=== PATIENT | female | born 1955 ===

== ENCOUNTER 2022-02-22 15:35 | Observation (INO) ==
[2022-02-22] MEDS: Heparin 5000 UNITS/ML 1 mL VIAL SUBCUT SCH (21:49)
[2022-02-22 21:52] LABS: ABS Eosinophils 0.1 10^3/ul (0-0.6); ABS Lymphocytes 3.3 10^3/ul (1.0-4.8); ABS Monocytes 0.6 10^3/ul (0-0.8); ABS Neutrophils 4.3 10^3/ul (1.5-7.7); Eosinophil % 1.6 %; Hematocrit 44 % (35-47); Hemoglobin 14.9 g/dL (12.0-16.0); Lymphocyte % 39.3 %; Mean Corpuscular HGB Conc 34 g/dL (31-36); Mean Corpuscular Hemoglobin 32 pg (27-31); Mean Corpuscular Volume 95 fL (80-97); Nucleated Red Blood Cells % 0.1; Platelet Count 173 10^3/uL (150-450); Red Blood Count 4.61 10^6 /uL (3.70-4.87); Red Cell Distribution Width 14 % (10-15); White Blood Count 8.3 10^3/uL (3.5-10.8)
[2022-02-22 22:27] LABS: Calcium 9.1 mg/dL (8.6-10.3)
[2022-02-23] MEDS: Heparin 5000 UNITS/ML 1 mL VIAL SUBCUT SCH (05:47)
[2022-02-23 07:14] LABS: HDL Cholesterol 48.9 mg/dL
[2022-02-23 08:22] VITALS: BP 144/85
== END 2022-02-23 11:15 | disposition home or self-care (01) ==
LOC: SUATTDRO 17:08 → MEDTELE 17:08 → INTOOBSV 17:08
PROVIDERS: ADMIT Emergency Medicine; ATTEND Hospitalist